=== PATIENT | male | born 1995 | race Hispanic/Latino ===

== ENCOUNTER 2022-03-31 22:24 | Emergency (ER) | payer SELFPAY ==
[2022-04-01] MEDS ORDERED: Tetracaine 0.5% PF 4 ML BOT ONE (00:03)
[2022-04-01] MEDS ORDERED: Fluorescein Opthalmic Strip ONE (00:04)
[2022-04-01] MEDS ORDERED: Sodium Chloride 0.9% 1,000 ML ONE (01:48)
[2022-04-01] MEDS ORDERED: Metoclopramide HCl 10 MG/2 ML VIAL ONE (01:48)
[2022-04-01] MEDS ORDERED: diphenhydrAMINE 50 MG/ML VIAL ONE (01:48)
[2022-04-01] MEDS ORDERED: Ketorolac Tromethamine 30 MG/ML VIAL ONE (01:48)
[2022-04-01] MEDS ORDERED: Boostrix 0.5 ML (Tdap) VIAL (>/=7 yrs of age) ONE (01:48)
== END 2022-04-01 07:40 | disposition home or self-care (01) ==
LOC: MADERS 22:24
DX: T15.01XA Foreign body in cornea, right eye, initial encounter (principal); H10.9 Unspecified conjunctivitis; F17.210 Nicotine dependence, cigarettes, uncomplicated; X58.XXXA Exposure to other specified factors, initial encounter; Y93.89 Activity, other specified; Z23 Encounter for immunization
CPT/HCPCS: 70482; 90471; 90715; 96374; 96375; J1200; J1885; J2765; J7050